=== PATIENT | male | born 1975 | race American Indian/Alaskan Native ===

== ENCOUNTER 2017-03-09 15:37 | Emergency (ER) | payer SELFPAY ==
[2017-03-09 16:16] VITALS: BP 120/78
--- NOTE | 2017-03-09 17:50 | Emergency Department Report ---
- General Chief complaint: Skin/Abscess/Foreign Body Stated complaint: GROWTH BETWEEN HIS LEGS Time Seen by Provider: 03/09/17 17:07 Source: patient Mode of arrival: Ambulatory Limitations: No Limitations - History of Present Illness Initial comments: Patient here complaining of boil or cysts under his scrotal since Sunday. He said similar episode in the past and he said it had to be drained that he was placed on antibiotic. He said it started draining today. Denies any fever or chills. Denies any nausea or vomiting. He said he doesn't know why he keeps getting these. Denies any abdominal pain. Pain to abscess site is 9/10. He said he took [id number] pain medication but it's not helping. MD complaint: abscess/boil Onset/Timin -: days(s) Tetanus Up to Date: yes Location: genitals Severity: severe Severity scale (0 -10): 9 Quality: constant, other (throbbing) Consistency: constant Improves with: immobilization, rest Worsens with: palpation, movement Context: other (unknown) Associated symptoms: denies other symptoms Treatments Prior to Arrival: attempted to drain pus at, other ([id number] pain medication) - Related Data Previous Rx's Medication Instructions Recorded Last Taken Type HYDROcodone/APAP 5-325 [[place]ia 1 each PO Q6HR PRN #12 tablet 03/09/17 Unknown Rx 5/325] Sulfamethoxazole/Trimethoprim 1 each PO BID #20 tablet 03/09/17 Unknown Rx [Bactrim DS TAB] Allergies Allergy/AdvReac Type Severity Reaction Status Date / Time No Known Allergies Allergy Unverified 03/09/17 16:12 Abscess Boil HPI - HPI Chief Complaint: Skin/Abscess/Foreign Body Stated Complaint: GROWTH BETWEEN HIS LEGS Time Seen by Provider: 03/09/17 17:07 Home Medications: Previous Rx's Medication Instructions Recorded Last Taken Type HYDROcodone/APAP 5-325 [[place] 1 each PO Q6HR PRN #12 tablet 03/09/17 Unknown Rx 5/325] Sulfamethoxazole/Trimethoprim 1 each PO BID #20 tablet 03/09/17 Unknown Rx [Bactrim DS TAB] Allergies/Adverse Reactions: Allergies Allergy/AdvReac Type Severity Reaction Status Date / Time No Known Allergies Allergy Unverified 03/09/17 16:12 ED Review of Systems ROS: Stated complaint: GROWTH BETWEEN HIS LEGS Other details as noted in HPI Comment: All other systems reviewed and negative Constitutional: denies: chills, fever ENT: denies: throat pain Respiratory: no symptoms reported Cardiovascular: denies: chest pain, palpitations, edema, syncope Gastrointestinal: denies: abdominal pain, nausea, vomiting, diarrhea Genitourinary: other (patient has been drainage from abscess on scrotum). denies: urgency, dysuria, frequency, hematuria, discharge, testicular pain, testicular mass Musculoskeletal: denies: back pain, arthralgia Skin: other (draining abscess the scrotal area) Neurological: denies: headache, numbness, paresthesias, abnormal gait, vertigo ED Past Medical Hx - Past Medical History Previous Medical History?: Yes Additional medical history: Multiple abscess - Surgical History Past Surgical History?: Yes Additional Surgical History: CYST REMOVED - Family History Family history: no significant - Social History Smoking Status: Current Every Day Smoker Substance Use Type: Alcohol, Marijuana - Medications Home Medications: Home Medications Medication Instructions Recorded Confirmed Last Taken Type HYDROcodone/APAP 5-325 [[place] 1 each PO Q6HR PRN #12 tablet 03/09/17 Unknown Rx 5/325] Sulfamethoxazole/Trimethoprim 1 each PO BID #20 tablet 03/09/17 Unknown Rx [Bactrim DS TAB] ED Physical Exam - General Limitations: No Limitations General appearance: alert, in no apparent distress - Head Head exam: Present: atraumatic, normocephalic, normal inspection - Eye Eye exam: Present: normal appearance, PERRL, EOMI Pupils: Present: normal accommodation - ENT ENT exam: Present: normal exam, normal orophraynx, mucous membranes moist, TM's normal bilaterally, normal external ear exam - Neck Neck exam: Present: normal inspection, full ROM. Absent: tenderness, meningismus, lymphadenopathy - Respiratory Respiratory exam: Present: normal lung sounds bilaterally. Absent: respiratory distress, chest wall tenderness - Cardiovascular Cardiovascular Exam: Present: regular rate, normal rhythm, normal heart sounds - GI/Abdominal GI/Abdominal exam: Present: soft, normal bowel sounds. Absent: distended, tenderness, guarding, rebound, rigid - Rectal Rectal exam: Present: normal inspection - exam: Present: scrotal swelling (abscess the strain in copious amount of). Absent: normal inspection, testicular tenderness, urethral discharge, vertical testicular lie External exam: Present: other (abscess noted to the left scrotal area which is draining copious amount of pus). Absent: erythema, swelling, lesions, lacerations, ecchymosis, bleeding - Extremities Exam Extremities exam: Present: normal inspection, full ROM, normal capillary refill. Absent: tenderness, pedal edema, joint swelling, calf tenderness - Back Exam Back exam: Present: normal inspection, full ROM. Absent: tenderness, CVA tenderness (R), CVA tenderness (L), muscle spasm, paraspinal tenderness, vertebral tenderness, rash noted - Neurological Exam Neurological exam: Present: alert, oriented X3, normal gait, reflexes normal. Absent: motor sensory deficit - Psychiatric Psychiatric exam: Present: normal affect, normal mood - Skin Skin exam: Present: warm, dry, other (scrotal abscess) - Expanded Skin Exam Expanded Type of lesion: Present: abscess Distribution of rash: genitals (left scrotal area) Description of rash: Present: tenderness, swelling, discharge (copious amount of pus that is malodorous), fluctuant. Absent: erythematous, indurated ED Course Vital Signs 03/09/17 16:13 Temperature 98.9 F Pulse Rate 88 Respiratory 18 Rate Blood Pressure 120/78 O2 Sat by Pulse 100 Oximetry - Reevaluation(s) Reevaluation #1: 03/09/17 18:13 Patient given Motrin 800 mg by mouth for pain and Rocephin 1 g IM for scrotal abscess. - Procedure Description Procedures done: Procedure for drainage of complex abscess: Abscess to left scrotal area with copious amount of drainage that is malodorous. Abscess express and large amount of serous saying drainage came from area. Area cleansed with iodine and saline and gauze dressing placed at site. Instructed patient that he needs to do sitz baths 3 times a day to facilitate drainage. ED Medical Decision Making - Medical Decision Making ED course: She was scrotal abscess that is already draining. Copious amount of serous saying drainage which is malodorous expressed from area. He was given Rocephin 1 g IM and emergency room along with Motrin 800 mg by mouth. I encouraged him to do sitz baths 3 times a day in warm water to facilitate drainage. Patient is stable and voice understanding of discharge instructions. He does not have a primary care physician so I told him he needs to follow-up with outside [facility] to see discharge instruction paperwork for address and phone number. Patient discharged home with prescription for Ultram DL this and Islandia. Critical care attestation.: If time is entered above; I have spent that time in minutes in the direct care of this critically ill patient, excluding procedure time. ED Disposition Clinical Impression: Pain, scrotum, Scrotal abscess Disposition: - TO HOME OR SELFCARE Is pt being admited?: No Does the pt Need Aspirin: No Condition: Stable Instructions: Abscess (ED) Additional Instructions: Please keep affected area clean and dry Sitz baths in warm water 3 times a day If you develop redness at site, increased pain, fever or chills and/or scrotal pressure presents return to the emergency room PAIGE. Youcan follow-up with outside Medical Center as you do not have a primary care physician for general medical problems and for follow-up abscess. If he cannot follow-up at [facility] for abscess he can follow back up in the emergency room in [address] or operate heavy machinery while taking [place] as this medication causes drowsiness Prescriptions: HYDROcodone/APAP 5-325 [[place] 5/325] 1 each PO Q6HR PRN #12 tablet PRN Reason: Pain Sulfamethoxazole/Trimethoprim [Bactrim DS TAB] 1 each PO BID #20 tablet Referrals: [facility] [Outside] - 03/13/17 Forms: Work/School Release Form(ED)
[2017-03-09] MEDS ORDERED: MOTRIN PO ONE (18:06)
[2017-03-09] MEDS ORDERED: XYLOCAINE 1% MPF 5 mL INFILTRATI ONE (18:13)
[2017-03-09] MEDS ORDERED: ROCEPHIN IM STA (18:13)
== END 2017-03-09 18:27 | disposition home or self-care (01) ==
LOC: ED 15:37
DX: N49.2 Inflammatory disorders of scrotum (principal); F12.10 Cannabis abuse, uncomplicated; F17.200 Nicotine dependence, unspecified, uncomplicated
CPT/HCPCS: 55100; 96372; 99282; J0696